=== PATIENT | male | born 1940 | race African-American/Black ===

== ENCOUNTER 2016-12-27 23:45 | Emergency (ER) | payer MEDICARE, OTHER ==
--- NOTE | ~2016-12-27 | CT72 ---
[facility] A Service [facility] RADIOLOGY TEXT RESULTS PATIENT: YESI BURNS LOCATION: SED : 41 UNIT #: [id number] AGE: [address]: Sebastian Jaime MD SEX: M ORDER DR: [id number] [place] [id number] E MR#: [id number] Acc #: [id number] NAME: YESI BURNS : 1940 SEX: M STUDY DATE/TIME: 12/28/2016 0:18 UNIT: SED ROOM: STUDY DESCRIPTION: CT Head Wo Contrast Stroke Attending Physician: Sebastian Jaime M.D. Ordering Physician: Sebastian Jaime M.D. Primary Care Physician: Neeru Rios M.D. MEDICAL IMAGING REPORT This report is preliminary unless electronic signature is present. EXAM CT scan of the head without contrast HISTORY Right side of mouth and head are numb, hand is numb. Patient is light-headed. Symptoms occurring now. COMPARISON STUDIES 08/06/2012. TECHNIQUE Axial noncontrast images were obtained from the skull base to the vertex. This CT exam was performed with one or more of the following radiation dose reduction techniques: automatic exposure control, adjustment of mA and/or kV according to patient size, and iterative reconstruction. FINDINGS Ventricular size and configuration are normal. There is no evidence of acute infarct or hemorrhage. There are no extraaxial fluid collections. No mass lesion or mass effect is seen. There are no skull fractures. IMPRESSION Normal noncontrast head CT. Dictated by... Kalyan Heaton M.D. THIS IS AN ELECTRONICALLY VERIFIED REPORT Kalyan Heaton M.D. at 12/28/2016 1:58 AM [facility] A Service [facility] RADIOLOGY TEXT RESULTS PATIENT: YESI BURNS LOCATION: SED : 41 UNIT #: [id number] AGE: [address]: Sebastian Jaime MD SEX: M ORDER DR: Shalini TD: 12/28/2016 01:11 JOB #: [id number] MEDICAL IMAGING REPORT Page 1 of 1
--- NOTE | ~2016-12-27 | CT24 ---
[facility] A Service of [facility] & [facility] RADIOLOGY TEXT RESULTS PATIENT: YESI BURNS LOCATION: SED : 41 UNIT #: [id number] AGE: [address]: Sebastian Jaime MD SEX: M ORDER DR: [id number] [place] [id number] E MR#: [id number] Acc #: [id number] NAME: YESI BURNS : 1940 SEX: M STUDY DATE/TIME: 12/28/2016 0:25 UNIT: SED ROOM: STUDY DESCRIPTION: CT Angio Neck Stroke Attending Physician: Sebastian Jaime M.D. Ordering Physician: Sebastian Jaime M.D. Primary Care Physician: Neeru Rios M.D. MEDICAL IMAGING REPORT This report is preliminary unless electronic signature is present. EXAM CT scan of the head and neck with angiographic reconstructions INDICATIONS Right side of mouth and head are numb. Patient has been lightheaded since 11:00. TECHNIQUE Patient was given 80 mL of Isovue-370 and spiral imaging was performed from the aortic arch through the brain. 3-D reconstructions of the arterial structures were generated. NASCET criteria was utilized. This CT exam was performed with one or more of the following radiation dose reduction techniques: Automatic exposure control, adjustment of mA and/or kV according to patient size, and iterative reconstruction. FINDINGS There is an 11-mm noncalcified nodule in the right apex. There is minimal fibrosis in each apical region as well. The thyroid gland contains a 1-cm low-density nodule in the right lobe and a 1-cm nodule in the left lobe. The submandibular glands and parotid glands are normal. The ventricles and subarachnoid spaces are normal and there are no masses or extraaxial fluid collections. VASCULAR FINDINGS: The aortic arch is normal in size. The three great vessels have separate origins and they are all patent. The vertebral arteries both arise from the subclavian arteries. The origin of the right vertebral artery is obscured by streak artifact from dense contrast in the vein. Both vertebral arteries appear patent and they unite to form the basilar artery. The right common carotid artery, carotid bifurcation and internal carotid artery are normal and the left common carotid artery, carotid bifurcation and internal carotid artery are normal except for minimal plaque formation. No stenosis is identified. The basilar artery is normal. The right posterior cerebral artery arises from the anterior STS. [facility] A Service of [facility] & [facility] RADIOLOGY TEXT RESULTS PATIENT: YESI BURNS LOCATION: [place] : 41 UNIT #: [id number] AGE: [address]: Sebastian Jaime MD SEX: M ORDER DR: circulation. The left is normal. The middle and anterior cerebral arteries are normal in appearance with an anterior communicating artery present. IMPRESSION 1. No significant arterial stenosis or occlusion is identified from the aortic arch through the brain. 2. Small thyroid nodules measuring less than 1 cm in diameter. 3. 11 mm noncalcified nodule right apex. There are no old studies for comparison. If no old studies are available, then follow up with a complete chest CT should be considered. Dictated by... Kalyan Heaton M.D. THIS IS AN ELECTRONICALLY VERIFIED REPORT Kalyan Heaton M.D. at 12/28/2016 1:58 AM ROSA/manjit TD: 12/28/2016 01:34 JOB #: [id number] MEDICAL IMAGING REPORT Page 1 of 1
--- NOTE | ~2016-12-27 | CT18 ---
[facility]. [facility] A Service of [facility] & [facility] RADIOLOGY TEXT RESULTS PATIENT: YESI BURNS LOCATION: SED : 41 UNIT #: [id number] AGE: [address]: Sebastian Jaime MD SEX: M ORDER DR: [id number] [place] [id number] [id number] E MR#: [id number] Acc #: [id number] NAME: YESI BURNS : 1940 SEX: M STUDY DATE/TIME: 12/28/2016 0:25 UNIT: SED ROOM: STUDY DESCRIPTION: CT Angio Head Stroke Attending Physician: Sebastian Jaime M.D. Ordering Physician: Sebastian Jaime M.D. Primary Care Physician: Neeru Rios M.D. MEDICAL IMAGING REPORT This report is preliminary unless electronic signature is present. EXAM CT angio head stroke HISTORY Right side of mouth and head are numb. Patient has been lightheaded since 11:00. FINDINGS Please see CT ANGIO NECK STROKE report for combined text results. Dictated by... Kalyan Heaton M.D. THIS IS AN ELECTRONICALLY VERIFIED REPORT Kalyan Heaton M.D. at 12/28/2016 1:58 AM ROSA/manjit TD: 12/28/2016 01:46 JOB #: [id number] MEDICAL IMAGING REPORT Page 1 of 1
--- NOTE | ~2016-12-27 | EKG ---
PATIENT: YESI BURNS UNIT #: [id number] Ventricular Rate: 70 BPM Atrial Rate: 70 BPM P-R Interval: 218 ms QRS Duration: 86 ms Q-T Interval: 430 ms QTC Calculation(Bezet): 464 ms P [place]: 82 degrees Calculated R [place]: 56 degrees Calculated T [place]: 52 degrees Diagnosis Line: Sinus rhythm with 1st degree A-V block Diagnosis Line: Otherwise normal ECG Diagnosis Line: No previous ECGs available Diagnosis Line: Confirmed by MARKELL ARAIZA MD ([id number]) on 01/04/2017 Diagnosis Line: 11:53:08 AM INTERPRETING MD: JOSE G CARLOS
[~2016-12-27 23:45] MED LIST: CRESTOR PO; LIPITOR; NAPROSYN500 MG PO
[2016-12-27] MEDS ORDERED: HCTZ PO (23:49)
[2016-12-27] MEDS ORDERED: ZOCOR PO (23:49)
[2016-12-27] MEDS ORDERED: NEURONTIN PO (23:50)
[2016-12-28 00:17] LABS: BASOPHIL% 0.7 % (0-2.5); EOSINOPHIL# 0.2 X10e3 (0-0.7); HEMATOCRIT 40.5 % (38.0-50.0); HEMOGLOBIN 13.6 gm/dL (13.0-16.0); LYMPHOCYTE# 2.7 X10e3 (1.0-3.5); LYMPHOCYTE% 50.1 % (17.0-45.0); MEAN CELL VOLUME 85.9 FL (83-96); MEAN CORPUSCULAR HEMOGLOBIN 28.7 PG (28-34); MEAN CORPUSCULAR HGB CONC 33.4 g/dL (30-36); MEAN PLATELET VOLUME 9.7 FL (6.5-11.5); MONOCYTE# 0.7 X10e3 (0-1.0); MONOCYTE% 12.5 % (3.0-12.0); NEUTROPHIL# 1.8 X10e3 (1.5-7.1); NEUTROPHIL% 33.7 % (40-75); PLATELET COUNT 142 X10e3 (140-420); PROTHROMBIN TIME (PATIENT) 11.1 SECONDS (9.5-12.4); RED BLOOD COUNT 4.72 X10e (3.90-5.60); RED CELL DISTRIBUTION WIDTH 13.8 % (11.0-15.5); WHITE BLOOD COUNT 5.4 X10e3 (4.0-10.5)
[2016-12-28 00:19] LABS: POC - CKMB 1.8 ng/mL (0.0-7.9); POC - TROPONIN <0.05 ng/mL (<=0.05)
[2016-12-28 00:24] LABS: PARTIAL THROMBOPLASTIN TIME 29.9 SECONDS (25.6-38.1)
[2016-12-28 00:26] LABS: ALBUMIN SERUM 4.5 g/dL (3.5-5.0); BILIRUBIN, DIRECT 0.1 mg/dL (0.0-0.2); BILIRUBIN,INDIRECT 0.4 mg/dL (0.0-0.9); BILIRUBIN,TOTAL 0.5 mg/dL (0.2-2.0); CALCIUM SERUM 8.9 mg/dL (8.4-10.2); DIFF IND NO; POTASSIUM 3.8 mmol/L (3.5-5.1); PROTEIN TOTAL SERUM 7.4 g/dL (6.0-8.3)
[2016-12-28 00:30] LABS: POC - CREATININE 1.24 mg/dL (0.64-1.27); POC - GFR >60.0 mL/min (>60)
== END 2016-12-28 02:35 ==
LOC: SED 23:45
PROVIDERS: Emergency Medicine
DX: G45.9 Transient cerebral ischemic attack, unspecified (principal); E78.5 Hyperlipidemia, unspecified
CPT/HCPCS: 70450; 70496; 70498; 80048; 80076; 82553; 82565; 82947; 84484; 85025; 85610; 85730; 93005; 99291; Q9967